=== PATIENT | female | born 1990 | race Caucasian/White ===

== ENCOUNTER 2024-05-25 17:18 | Inpatient (IN) ==
[2024-05-25 18:24] LABS: Appearance Urine Clear (Clear); Bilirubin Urine Negative (Negative); Blood Urine Negative (Negative); Color Urine Yellow; Glucose Urine UA Negative (Negative); Ketones Urine Negative (Negative); Leukocyte Esterase Urine Negative (Negative); Nitrite Urine Negative (Negative); Protein Urine Negative (Negative); Specific Gravity Urine 1.007 (1.000-1.030); Urobilinogen Urine Negative (Negative)
[2024-05-25 18:25] LABS: Basophils # (auto) 0.01 K/uL (0.00-0.20); Basophils % (auto) 0.2 %; Eosinophils # (auto) 0.03 K/uL (0.00-0.50); Eosinophils % (auto) 0.5 %; Hematocrit (blood only) 39.8 % (37.0-47.0); Immature Granulocytes # (auto) 0.02 K/uL (0.01-0.20); Immature Granulocytes % (auto) 0.3 %; Lymphocytes # (auto) 1.45 K/uL (1.20-3.40); Lymphocytes % (auto) 23.7 %; Mean Corpuscular Hgb Conc 32.7 g/dL (32.0-36.0); Mean Corpuscular Volume 85.6 fL (80.0-100.0); Mean Platelet Volume 10.6 fL (9.4-12.4); Monocytes # (auto) 0.29 K/uL (0.11-0.59); Monocytes % (auto) 4.7 %; Neutrophils # (auto) 4.33 K/uL (1.40-6.50); Neutrophils % (auto) 70.6 %; Platelet Count 192 K/uL (130-400); RDW Coefficient of Variation 13.6 % (11.5-14.5); Red Blood Count 4.65 M/uL (4.20-5.40); White Blood Count 6.13 K/ul (4.8-10.8)
[2024-05-25 18:43] LABS: Acetaminophen < 3 ug/ml (10-30); Salicylate < 3.0 mg/dl (3.0-30)
[2024-05-25 18:44] LABS: Albumin Globulin Ratio 1.6 (0.9-2); Albumin Level 5.1 gm/dl (3.4-5.0); BUN Creatinine Ratio 14.8 (10-20); Bilirubin,Total 1.1 mg/dl (0.2-1.0); Calcium 10.1 mg/dl (8.6-10.3); Creatinine Clr Calc Pharmacy 133.9 ml/min; Est GFR (African American) 143.7 ml/min; Globulin 3.2 gm/dl (2.5-4.0); Potassium 3.5 mmol/L (3.5-5.1); Total Protein 8.3 gm/dl (6.0-8.3)
[2024-05-25 18:50] LABS: Pregnancy Test, Serum Negative (Negative)
[2024-05-25 18:52] LABS: Amphetamines+Metham, Urine Neg (Neg); Barbiturates, Urine Neg (Neg); Benzodiazepine, Urine Neg (Neg); Cocaine, Urine Neg (Neg); Fentanyl, Urine Neg (Neg); MDMA (Ecstacy), Urine Neg (Neg); Marijuana, Urine Neg (Neg); Methadone, Urine Neg (Neg); Opiate, Urine Neg (Neg); Phencyclidine, Urine Neg (Neg)
[2024-05-25 18:58] LABS: Thyroid Stimulating Hormone 1.777 uIu/ml (0.300-4.500)
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
[2024-05-25] MEDS ORDERED: hydrOXYzine HCl 25 MG TAB PO PRN ×2 (22:45)
[2024-05-25] MEDS ORDERED: ALUMINUM/MAGNESIUM SUSP 30 ML UDC PO PRN (22:45)
[2024-05-25] MEDS ORDERED: SODIUM CHLORIDE 0.65% NA SOLN 45 ML (OCEAN) PRN (22:45)
[2024-05-25] MEDS ORDERED: ACETAMINOPHEN 325 MG TAB PO PRN (22:45)
[2024-05-25] MEDS ORDERED: BISMUTH SUBSALICYLATE LIQD 236 ML PO PRN (22:45)
[2024-05-25] MEDS ORDERED: MAGNESIUM HYDROXIDE SUSP 30 ML UDC PO PRN (22:45)
[2024-05-26 00:12] VITALS: RESP 16; O2SAT 99
--- NOTE | 2024-05-26 00:38 | CT Scan Report ---
Exam(s): CT HEAD Without Contrast EXAM: CT Head Without Intravenous Contrast CLINICAL HISTORY: psych/AMS. TECHNIQUE: Axial computed tomography images of the head/brain without intravenous contrast. CTDI is 75.22 mGy and DLP is 703.85 mGy-cm. Automated exposure control was utilized for the study. A dose lowering technique was utilized adhering to the principles of ALARA. COMPARISON: No relevant prior studies available. FINDINGS: Brain: No intracranial hemorrhage. No significant mass-effect. No evidence for cortical infarct. No significant white matter disease. Ventricles: Unremarkable. No ventriculomegaly. Bones/joints: Unremarkable. No acute fracture. Soft tissues: Unremarkable. Sinuses: Unremarkable as visualized. No acute sinusitis. Mastoid air cells: Unremarkable as visualized. No mastoid effusion. IMPRESSION: No acute intracranial process identified. Electronically signed by: Temo Delvalle MD 05/26/24 00:37 AM
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
[2024-05-28] MEDS: ARIPiprazole 10 MG TAB PO SCH (21:31)
[2024-05-29 06:42] VITALS: BP 102/68; TEMP 98.1
[2024-05-29] MEDS: CHOLECALCIFEROL 125 MCG (5,000 UNITS) TAB PO SCH (08:50)
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
[2024-05-29 10:22] VITALS: PULSE 85
== END 2024-05-29 11:15 | disposition home or self-care (01) | DRG 885 ==
LOC: ED 17:18 → 3S 22:45